=== PATIENT | male | born 1950 | race Caucasian/White ===

== ENCOUNTER 2017-02-25 14:40 | Emergency (ER) | payer BC, OTHER ==
[2017-02-25 14:52] VITALS: BP 148/91
--- NOTE | 2017-02-25 15:16 | EDM.PDOC ---
ED HPI GENERAL MEDICAL PROBLEM - General Chief Complaint: Lower Extremity Injury/Pain Stated Complaint: LT LEG SWELLING AFTER KNEE REPLACEMENT Time Seen by Provider: 02/25/17 15:03 Source of Information: Reports: Patient History Limitations: Reports: No Limitations - History of Present Illness INITIAL COMMENTS - FREE TEXT/NARRATIVE: Patient is a 66-year-old male who presents to the ED complaining of increased leg swelling with concerns of blood clot to the left lower leg. Patient recently just had a total knee replacement one week ago. He was being evaluated by physical therapy today and noted that he had approximately 2.5 cm increase in swelling in comparison the right with pain edema. There is concerns of patient may have a blood clot. He was instructed to come to the ED for ultrasound to rule out DVT. Patient has no fever/chills, chest pain, shortness of breath, nausea/vomiting, or any additional complaints. Pain to the lower leg is a 6 out of 10 and has been slowly improving. He has been ambulating with a walker. He has no history of blood clots. Left Lower Leg Pain Score (Numeric/FACES): 8 - Related Data Allergies Allergy/AdvReac Type Severity Reaction Status Date / Time gabapentin Allergy Cannot Verified 02/25/17 16:36 Remember metformin Allergy Cannot Verified 02/25/17 16:36 Remember niacin Allergy Cannot Verified 02/25/17 16:35 Remember Home Meds: Home Meds Atenolol 12.5 mg PO DAILY 02/25/17 [History] Celecoxib 200 mg PO BID 02/25/17 [History] Cyanocobalamin (Vitamin B-12) [B-12] 2,000 mcg PO DAILY 02/25/17 [History] Docusate Sodium/Sennosides [Senna Plus] 1 tab PO BID 02/25/17 [History] Folic Acid 1 mg PO DAILY 02/25/17 [History] Pioglitazone HCl 45 mg PO DAILY 02/25/17 [History] Pregabalin [Lyrica] 50 mg PO TID 02/25/17 [History] Rivaroxaban [Xarelto] 10 mg PO DAILY 02/25/17 [History] Rosuvastatin Calcium 40 mg PO BEDTIME 02/25/17 [History] Venlafaxine HCl [Venlafaxine HCl ER] 225 mg PO DAILY 02/25/17 [History] glipiZIDE [Glucotrol XL] 10 mg PO BIDAC 02/25/17 [History] metFORMIN [Glucophage XR] 1,000 mg PO BID 02/25/17 [History] oxyCODONE 5 mg PO QID PRN 02/25/17 [History] Past Medical History HEENT History: Reports: Other (See Below) Other HEENT History: wears glasses Endocrine/Metabolic History: Reports: Diabetes, Type II Oncologic (Cancer) History: Reports: Prostate - Past Surgical History Musculoskeletal Surgical History: Reports: Knee Replacement, Shoulder Surgery Social & Family History - Tobacco Use Smoking Status *Q: Never Smoker - Recreational Drug Use Recreational Drug Use: No Review of Systems - Review of Systems Review Of Systems: ROS reveals no pertinent complaints other than HPI. ED EXAM, GENERAL - Physical Exam Exam: See Below Exam Limited By: No Limitations General Appearance: Alert, WD/WN, No Apparent Distress Ears: Hearing Grossly Normal Nose: Normal Inspection Throat/Mouth: Normal Voice, No Airway Compromise Neck: Normal Inspection, Supple Respiratory/Chest: No Respiratory Distress, Lungs Clear, Normal Breath Sounds, No Accessory Muscle Use, Chest Non-Tender Cardiovascular: Normal Peripheral Pulses, Regular Rate, Rhythm, No Murmur Peripheral Pulses: 2+: Radial (L), Posterior Tibial (L) Extremities: Other (Surgical impregnated antibacterial bandage to the dorsal aspect of the left knee. Patient has swelling from the knee down extending to his foot. Mild ecchymosis to the left lateral aspect of his foot. Pitting edema noted to his lower leg with pain present with palpation to the knee and lower leg. He denies any claudication. No sensory changes noted. Decreased range of motion of the knee secondary to pain.) Course - Vital Signs Last Recorded V/S: Last Vital Signs Temp 97.3 F 02/25/17 14:50 Pulse 116 H 02/25/17 14:50 Resp 16 02/25/17 14:50 BP 148/91 H 02/25/17 14:50 Pulse Ox 97 02/25/17 14:50 - Re-Assessments/Exams Free Text/Narrative Re-Assessment/Exam: At this point patient is afebrile with no chest pain or shortness of breath. Ultrasound of the left lower extremity has been ordered. 02/25/17 16:40 Ultrasound of left left leg did not reveal any evidence of deep venous thrombosis within the left lower extremity are within the right common femoral vein. Discharge instructions as documented. Departure - Departure Time of Disposition: 16:41 Disposition: Home, Self-Care 01 Condition: Good Clinical Impression: Status post total knee replacement, left, Lower leg edema - Discharge Information Instructions: Total Knee Replacement, Care After, [id number], Edema, Easy-to- Read Referrals: Justine Dumont DO [Primary Care Provider] - Forms: ED Department Discharge Additional Instructions: As discussed ultrasound of the left leg did not reveal any findings concerning for blood clot. Continue with physical therapy treatment as scheduled. Elevate leg when able to reduce any swelling. Must be above the heart to work. See her PCP as needed for reevaluation this week. Keep appointment with orthopedic surgeon scheduled for next week. Return to the ED as needed for any new or worsening symptoms. Continue taking all your home medications as prescribed.
--- NOTE | 2017-02-25 16:34 | US ---
Left lower extremity deep venous ultrasound: Duplex and color flow imaging was obtained of the left common femoral, superficial femoral, popliteal, posterior tibial, peroneal and proximal greater saphenous veins. Right common femoral vein was also evaluated. Findings: Peroneal vein was unable to be seen for compression and phasic flow. There did appear to be augmentation present within the peroneal vein indicating patency. Other veins show normal phasic flow, augmentation and compression. Impression: 1. No evidence of deep venous thrombosis within the left lower extremity or within the right common femoral vein. Diagnostic code #1
== END 2017-02-25 16:55 | disposition home or self-care (01) ==
LOC: JD.ED 14:40
DX: R60.0 Localized edema (principal); Z88.8 Allergy status to other drugs, medicaments and biological substances; Z79.899 Other long term (current) drug therapy; Z79.84 Long term (current) use of oral hypoglycemic drugs; Z96.652 Presence of left artificial knee joint
CPT/HCPCS: 93971-26-LT; 93971-LT; 99284; 99284-25

== ENCOUNTER 2020-01-01 13:49 | Emergency (ER) | payer OTHER ==
[2020-01-01 14:28] VITALS: BP 135/62; PULSE 78
--- NOTE | 2020-01-01 14:50 | EDM.PDOC ---
ED HPI GENERAL MEDICAL PROBLEM - General Chief Complaint: Diabetic Complaint Stated Complaint: PT IS DIABETIC AND HAS A BLACK TOE Time Seen by Provider: 01/01/20 14:48 - History of Present Illness INITIAL COMMENTS - FREE TEXT/NARRATIVE: 69-year-old male presents the emergency room with a history of having a purple toe involving the left great toe. Patient awoke this morning and he had a purple toe this did get better over raj e. The patient is not having any chest pain breathing difficulties or shortness of breath at this time is having no pain at all. He does not recall having any pain this morning when his foot was purple. Patient has not had an episode like this in the past he has no history of A. fib and he is not on any blood thinners. Patient does a significant history of type II diabetes. Patient denies any other complaints at this time. He denies heart problems including A. fib or coronary artery disease. He has no history of blood clots in the past. - Related Data Allergies Allergy/AdvReac Type Severity Reaction Status Date / Time gabapentin Allergy Cannot Verified 02/25/17 16:36 Remember metformin Allergy Cannot Verified 02/25/17 16:36 Remember niacin Allergy Cannot Verified 02/25/17 16:35 Remember Home Meds: Home Meds Celecoxib 200 mg PO BID 02/25/17 [History] Cyanocobalamin (Vitamin B-12) [B-12] 2,000 mcg PO DAILY 02/25/17 [History] Docusate Sodium/Sennosides [Senna Plus] 1 tab PO BID 02/25/17 [History] Folic Acid 1 mg PO DAILY 02/25/17 [History] Pioglitazone HCl 45 mg PO DAILY 02/25/17 [History] Pregabalin [Lyrica] 50 mg PO TID 02/25/17 [History] Rivaroxaban [Xarelto] 10 mg PO DAILY 02/25/17 [History] Rosuvastatin Calcium 40 mg PO BEDTIME 02/25/17 [History] Venlafaxine HCl [Venlafaxine HCl ER] 225 mg PO DAILY 02/25/17 [History] atenoloL [Atenolol] 12.5 mg PO DAILY 02/25/17 [History] glipiZIDE [Glucotrol XL] 10 mg PO BIDAC 02/25/17 [History] metFORMIN [Glucophage XR] 1,000 mg PO BID 02/25/17 [History] oxyCODONE 5 mg PO QID PRN 02/25/17 [History] Past Medical History HEENT History: Reports: Other (See Below) Other HEENT History: wears glasses Cardiovascular History: Reports: Hypertension Endocrine/Metabolic History: Reports: Diabetes, Type II Oncologic (Cancer) History: Reports: Prostate - Past Surgical History Musculoskeletal Surgical History: Reports: Knee Replacement, Shoulder Surgery Social & Family History - Family History Family Medical History: Noncontributory - Tobacco Use Smoking Status *Q: Never Smoker ED ROS GENERAL - Review of Systems Review Of Systems: See Below Constitutional: Reports: No Symptoms HEENT: Reports: No Symptoms Respiratory: Reports: No Symptoms Cardiovascular: Reports: No Symptoms GI/Abdominal: Reports: No Symptoms : Reports: No Symptoms Musculoskeletal: Reports: No Symptoms Skin: Reports: No Symptoms Neurological: Reports: No Symptoms ED EXAM GENERAL NO PERIP PULSE - Physical Exam Exam: See Below Exam Limited By: No Limitations General Appearance: Alert, No Apparent Distress Head: Atraumatic, Normocephalic Neck: Normal Inspection, Supple, Non-Tender, Full Range of Motion Respiratory/Chest: No Respiratory Distress, Lungs Clear, Normal Breath Sounds Cardiovascular: Regular Rate, Rhythm, No Edema, No Murmur GI/Abdominal: Normal Bowel Sounds, Soft, Non-Tender, No Organomegaly Extremities: Normal Inspection, No Pedal Edema, Other (His discoloration has completely resolved ankle-brachial index is 1.26 on the left, the affected side and 0.88 on the right) Neurological: Alert, Oriented, Normal Cognition Psychiatric: Normal Affect, Normal Mood Skin Exam: Warm, Dry, Intact, Normal Color EKG INTERPRETATION EKG Date: 01/01/20 Rhythm: NSR P-Wave: Present (First degree AV block) QRS: Normal ST-T: Normal QT: Normal Comparison: NA - No Prior EKG EKG Interpretation Comments: Abnormal EKG Course - Vital Signs Last Recorded V/S: Last Vital Signs Temp 36.4 C 01/01/20 14:23 Pulse 78 01/01/20 14:23 Resp 16 01/01/20 14:23 BP 135/62 01/01/20 14:23 Pulse Ox 97 01/01/20 14:23 - Orders/Labs/Meds Orders: Active Orders 24 hr Category Date Time Status EKG Documentation Completion [RC] STAT Care 01/01/20 15:05 Active Labs: Laboratory Tests 01/01/20 01/01/20 01/01/20 Range/Units 15:23 15:23 15:23 WBC 5.07 (4.23-9.07) K/mm3 RBC 3.92 L (4.63-6.08) M/mm3 Hgb 12.0 L (13.7-17.5) gm/dl Hct 37.1 L (40.1-51.0) % MCV 94.6 H (79.0-92.2) fl MCH 30.6 (25.7-32.2) pg MCHC 32.3 (32.2-35.5) g/dl RDW Std Deviation 46.3 H (35.1-43.9) fL Plt Count 140 L (163-337) K/mm3 MPV 10.5 (9.4-12.3) fl Neut % (Auto) 55.2 (34.0-67.9) % Lymph % (Auto) 32.0 (21.8-53.1) % [place] % (Auto) 11.4 (5.3-12.2) % Eos % (Auto) 1.0 (0.8-7.0) Baso % (Auto) 0.2 (0.1-1.2) % Neut # (Auto) 2.80 (1.78-5.38) K/mm3 Lymph # (Auto) 1.62 (1.32-3.57) K/mm3 [place] # (Auto) 0.58 (0.30-0.82) K/mm3 Eos # (Auto) 0.05 (0.04-0.54) K/mm3 Baso # (Auto) 0.01 (0.01-0.08) K/mm3 PT 10.9 (9.7-12.0) SECONDS INR 1.02 APTT 26 (22-31) SECONDS Sodium 142 (136-145) mEq/L Potassium 3.6 (3.5-5.1) mEq/L Chloride 106 (98-107) mEq/L Carbon Dioxide 29 (21-32) mEq/L Anion Gap 10.6 (5-15) BUN 22 H (7-18) mg/dL Creatinine 1.0 (0.7-1.3) mg/dL Est Cr Clr Drug Dosing 71.99 mL/min Estimated GFR (MDRD) > 60 (>60) mL/min BUN/Creatinine Ratio 22.0 H (14-18) Glucose 140 H (80-115) mg/dL Calcium 9.0 (8.5-10.1) mg/dL Total Bilirubin 0.4 (0.2-1.0) mg/dL AST 18 (15-37) U/L ALT 26 (16-63) U/L Alkaline Phosphatase 74 (46-116) U/L Troponin I (0.00-0.056) ng/mL Total Protein 7.8 (6.4-8.2) g/dl Albumin 3.7 (3.4-5.0) g/dl Globulin 4.1 gm/dL Albumin/Globulin Ratio 0.9 L (1-2) 01/01/20 Range/Units 15:23 WBC (4.23-9.07) K/mm3 RBC (4.63-6.08) M/mm3 Hgb (13.7-17.5) gm/dl Hct (40.1-51.0) % MCV (79.0-92.2) fl MCH (25.7-32.2) pg MCHC (32.2-35.5) g/dl RDW Std Deviation (35.1-43.9) fL Plt Count (163-337) K/mm3 MPV (9.4-12.3) fl Neut % (Auto) (34.0-67.9) % Lymph % (Auto) (21.8-53.1) % [place] % (Auto) (5.3-12.2) % Eos % (Auto) (0.8-7.0) Baso % (Auto) (0.1-1.2) % Neut # (Auto) (1.78-5.38) K/mm3 Lymph # (Auto) (1.32-3.57) K/mm3 [place] # (Auto) (0.30-0.82) K/mm3 Eos # (Auto) (0.04-0.54) K/mm3 Baso # (Auto) (0.01-0.08) K/mm3 PT (9.7-12.0) SECONDS INR APTT (22-31) SECONDS Sodium (136-145) mEq/L Potassium (3.5-5.1) mEq/L Chloride (98-107) mEq/L Carbon Dioxide (21-32) mEq/L Anion Gap (5-15) BUN (7-18) mg/dL Creatinine (0.7-1.3) mg/dL Est Cr Clr Drug Dosing mL/min Estimated GFR (MDRD) (>60) mL/min BUN/Creatinine Ratio (14-18) Glucose (80-115) mg/dL Calcium (8.5-10.1) mg/dL Total Bilirubin (0.2-1.0) mg/dL AST (15-37) U/L ALT (16-63) U/L Alkaline Phosphatase (46-116) U/L Troponin I < 0.017 (0.00-0.056) ng/mL Total Protein (6.4-8.2) g/dl Albumin (3.4-5.0) g/dl Globulin gm/dL Albumin/Globulin Ratio (1-2) - Re-Assessments/Exams Free Text/Narrative Re-Assessment/Exam: 01/01/20 17:53 Laboratory evaluation is unremarkable EKG is borderline for first-degree AV block otherwise normal axis and intervals no acute ST-T wave changes certainly no evidence of A. fib. The patient is unsure but does not believe he is taking Xarelto. He was taking this several years ago when he was here the reason for this is unclear to me at this point. The patient did not bring his medications or his med list with him and [facility]. His ankle-brachial indexes were 1.26 on the left and 0.88 on the right. Case was reviewed with Dr. Apple, vascular surgeon, at [facility] in [place]. His recommendation if the patient is taking Xarelto continue this if he is not do not start Xarelto for this. The patient needs follow-up with a vascular surgeon. I did discuss this with the patient and he is in agreement to this however would [facility]. He will follow-up with the clinic here Saturday. Departure - Departure Time of Disposition: 17:56 Disposition: Home, Self-Care 01 Clinical Impression: Blue toe syndrome - Discharge Information Instructions: Chronic Venous Insufficiency Referrals: PCP,Not In Area [Primary Care Provider] - Forms: ED Department Discharge Additional Instructions: Return to the emergency room with any questions problems or worsening symptoms. Follow-up with the [facility] on Saturday and seek referral to a vascular surgeon. You have been invited to follow-up with Dr. Apple, the vascular surgeon at [facility] in [place]. His office number is [phone]. Sepsis Event Note (ED) - Evaluation Sepsis Screening Result: No Definite Risk - Focused Exam Vital Signs: Vital Signs Temp Pulse Resp BP Pulse Ox 01/01/20 14:23 36.4 C 78 16 135/62 97 - My Orders Last 24 Hours: My Active Orders 01/01/20 15:05 EKG Documentation Completion [RC] STAT - Assessment/Plan Last 24 Hours: My Active Orders 01/01/20 15:05 EKG Documentation Completion [RC] STAT
== END 2020-01-01 18:14 | disposition home or self-care (01) ==
LOC: JD.ED 13:49
DX: I75.021 Atheroembolism of right lower extremity (principal); I10 Essential (primary) hypertension; E11.9 Type 2 diabetes mellitus without complications; Z88.1 Allergy status to other antibiotic agents; Z88.8 Allergy status to other drugs, medicaments and biological substances; Z79.899 Other long term (current) drug therapy
CPT/HCPCS: 36415; 80053; 84484; 85025; 85610; 85730; 93005; 93010; 99282; 99283-25